=== PATIENT | female | born 1990 | race Caucasian/White ===

== ENCOUNTER 2016-11-21 09:13 | Emergency (ER) | payer OTHER ==
[~2016-11-21 09:13] MED LIST: IBUP600 PO; PERI8.6T PO; PRENCAP6 PO
[2016-11-21] MEDS ORDERED: ONDANSETRON HCL 4 MG/2 ML VIAL ONE ×2 (09:59→10:00)
[2016-11-21] MEDS ORDERED: DEXTROSE 5%-LACTATED RING INJ 1,000 ML IV SCH (10:00)
[2016-11-21] MEDS ORDERED: ONDANSETRON INJ 8 MG in DEXTROSE 5% IN WATER INJ 50 ML IV ONE ×2 (10:15)
[2016-11-21 10:39] LABS: AUTOMATED NEUTROPHIL # 5.5 TH/MM3 (1.8-7.7); BASOPHIL % 0.2 % (0.0-2.0); EOSINOPHIL % 0.3 % (0.0-4.0); HEMATOCRIT 36.2 % (35.0-46.0); HEMO FLAGS DIFF FINAL; LYMPH % 13.2 % (9.0-44.0); LYMPHOCYTE # 0.9 TH/MM3 (1.0-4.8); MEAN CELL VOLUME 86.3 FL (80.0-100.0); MEAN CORPUSCULAR HEMOGLOBIN 29.1 PG (27.0-34.0); MEAN CORPUSCULAR HGB CONC 33.8 % (32.0-36.0); MONO % 5.8 % (0.0-8.0); NEUT % 80.5 % (16.0-70.0); PLATELET COUNT 214 TH/MM3 (150-450); RED BLOOD COUNT 4.19 MIL/MM3 (4.00-5.30); RED CELL DISTRIBUTION WIDTH 14.2 % (11.6-17.2); WHITE BLOOD COUNT 6.9 TH/MM3 (4.0-11.0)
--- NOTE | 2016-11-21 10:43 | PD ---
HPI Chief Complaint Nausea vomiting and diarrhea Date Seen: Nov 21, 2016 Time Seen: 10:41 Travel History International Travel<30 Days: No Contact w/Intl Traveler<30Days: No Known Affected Area: No History of Present Illness HPI 26-year-old who is at 28 weeks and 4 days comes in complaining of nausea vomiting and diarrhea for the past 2 days. She's been unable to tolerate anything orally and kept it down for the past 24 hours. She's been having some mild cramping when she has bouts of diarrhea but otherwise minimal abdominal pain. Patient denies dysuria, fever, headache. Patient denies any complications. Weeks Gestation: 28 Para: 1 : 3 Miscarriage: 1 History Past Medical History Medical History: Denies Significant Hx Obstetric History Obstetric History Spontaneous vaginal delivery Past Surgical History Narrative Surgical Ankle surgery, knee surgery Family History Family History: Negative Social History Alcohol Use: No Tobacco Use: No Substance Abuse: No Allergies-Medications (Allergen,Severity, Reaction): Coded Allergies: No Known Allergies (Unverified , 01/22/15) Home Meds Active Scripts Promethazine (Phenergan) 25 Mg Tablet, 25 MG PO Q6H Y for NAUSEA OR VOMITING, # 20 TAB 0 Refills Prov:Kristen Payne MD 11/21/16 Sennosides-Docusate Sodium (Tiff-Colace 8.6-50 mg) 1 Tab Tab, 2 TAB PO Q12H Y for CONSTIPATION, #30 TAB Prov:Kitty Lynch MD 01/22/15 Ibuprofen (Motrin 600 Mg Tab) 600 Mg Tab, 600 MG PO Q6H Y for CRAMPING, #30 TAB Prov:Kitty Lynch MD 01/22/15 Reported Medications Mv & Min W/Fe Fumarat ( 1) Cap, 1 CAP PO DAILY, CAP 01/21/15 Review of Systems Except as stated in HPI: all other systems reviewed are Neg General / Constitutional: Chills Gastrointestinal: Nausea, Vomiting, Diarrhea Physical Exam Narrative GENERAL: Well-nourished, well-developed patient. SKIN: Warm and dry. HEAD: Normocephalic and atraumatic. ENT: No nasal drainage noted. Mucous membranes pink. Airway patent. NECK: Supple, trachea midline. No JVD. CARDIOVASCULAR: Regular rate and rhythm without murmurs, gallops, or rubs. RESPIRATORY: Breath sounds equal bilaterally. No accessory muscle use. ABDOMEN/GI: Abdomen soft, non-tender, bowel sounds present, no rebound, no guarding Gravid to [28-] weeks size Fundal Height: [-] GENITOURINARY: Deferred External Genitalia: intact and normal in appearance BUS glands: [-] Cervix: [-] Dilatation: [-] Effacement: [-] Station: [-] Presentation: [-] Membranes: [intact or ruptured] Uterine Contractions: [-] FHT's: Category: [-1] Baseline: [140-] Reactive: [Moderate-] Variability: [Moderate-] Decels: [Absent-] EXTREMITIES: No cyanosis or edema. BACK: Nontender without obvious deformity. No CVA tenderness. NEUROLOGICAL: Awake and alert. Motor and sensory grossly within normal limits. Five out of 5 muscle strength in all muscle groups. Normal speech. Recheck exam Vitals are normal, patient has received approximately 1600 IV fluids, able to tolerate by mouth after receiving Phenergan and Zofran Will discharge home on antiemetics Data Data Vital Signs Reviewed: Yes Orders Orders Complete Blood Count With Diff (11/21/16 09:45) Comprehensive Metabolic Panel (11/21/16 09:45) Magnesium (Mg) (11/21/16 09:45) Amylase (11/21/16 09:45) Lipase (11/21/16 09:45) Urinalysis - C+S If Indicated (11/21/16 09:45) Dextrose 5%-Lactated Ring Inj (D5-Lr Inj (11/21/16 10:00) Lactated Ringer's 1000 Ml Inj (Lr 1000 M (11/21/16 11:01) Ondansetron Inj (Zofran Inj) (11/21/16 10:15) Ondansetron Inj (Zofran Inj) (11/21/16 09:59) Ondansetron Inj (Zofran Inj) (11/21/16 10:00) Labs Laboratory Tests Test 11/21/16 09:53 White Blood Count 6.9 TH/MM3 Red Blood Count 4.19 MIL/MM3 Hemoglobin 12.2 GM/DL Hematocrit 36.2 % Mean Corpuscular Volume 86.3 FL Mean Corpuscular Hemoglobin 29.1 PG Mean Corpuscular Hemoglobin Concent 33.8 % Red Cell Distribution Width 14.2 % Platelet Count 214 TH/MM3 Mean Platelet Volume 9.5 FL Neutrophils (%) (Auto) 80.5 % Lymphocytes (%) (Auto) 13.2 % Monocytes (%) (Auto) 5.8 % Eosinophils (%) (Auto) 0.3 % Basophils (%) (Auto) 0.2 % Neutrophils # (Auto) 5.5 TH/MM3 Lymphocytes # (Auto) 0.9 TH/MM3 Monocytes # (Auto) 0.4 TH/MM3 Eosinophils # (Auto) 0.0 TH/MM3 Basophils # (Auto) 0.0 TH/MM3 CBC Comment DIFF FINAL Differential Comment Urine Color YELLOW Urine Turbidity HAZY Urine pH 7.0 Urine Specific [place] 1.023 Urine Protein 30 mg/dL Urine Glucose (UA) NEG mg/dL Urine Ketones 40 mg/dL Urine Occult Blood SMALL Urine Nitrite NEG Urine Bilirubin NEG Urine Urobilinogen LESS THAN 2.0 MG/DL Urine Leukocyte Esterase MOD Urine RBC 35 /hpf Urine WBC 11 /hpf Urine Squamous Epithelial Cells 26 /hpf Urine Bacteria FEW /hpf Urine Mucus FEW /lpf Microscopic Urinalysis Comment CULTURE INDICATED Blood Urea Nitrogen 5 MG/DL Creatinine 0.48 MG/DL Random Glucose 92 MG/DL Total Protein 6.8 GM/DL Albumin 2.7 GM/DL Calcium Level 8.6 MG/DL Magnesium Level 2.0 MG/DL Alkaline Phosphatase 98 U/L Aspartate Amino Transf (AST/SGOT) 10 U/L Alanine Aminotransferase (ALT/SGPT) 12 U/L Total Bilirubin 0.5 MG/DL Sodium Level 136 MEQ/L Potassium Level 3.6 MEQ/L Chloride Level 105 MEQ/L Carbon Dioxide Level 21.7 MEQ/L Anion Gap 9 MEQ/L Estimat Glomerular Filtration Rate 155 ML/MIN Amylase Level 34 U/L Lipase 62 U/L Laboratory Tests Test 11/21/16 09:53 White Blood Count 6.9 Red Blood Count 4.19 Hemoglobin 12.2 Hematocrit 36.2 Mean Corpuscular Volume 86.3 Mean Corpuscular Hemoglobin 29.1 Mean Corpuscular Hemoglobin Concent 33.8 Red Cell Distribution Width 14.2 Platelet Count 214 Mean Platelet Volume 9.5 Neutrophils (%) (Auto) 80.5 Lymphocytes (%) (Auto) 13.2 Monocytes (%) (Auto) 5.8 Eosinophils (%) (Auto) 0.3 Basophils (%) (Auto) 0.2 Neutrophils # (Auto) 5.5 Lymphocytes # (Auto) 0.9 Monocytes # (Auto) 0.4 Eosinophils # (Auto) 0.0 Basophils # (Auto) 0.0 CBC Comment DIFF FINAL Differential Comment MDM Medical Record Reviewed: Yes Plan 28-29 weeks with mild dehydration due to gastroenteritis s/p hydration Will add antiemetics to home meds, Phenergan Diagnosis Diagnosis: Primary Impression: 28 weeks gestation of Additional Impressions: Nausea & vomiting Diarrhea Dehydration Disposition: 01 DISCHARGE HOME Scripts Promethazine (Phenergan) 25 Mg Tablet 25 MG PO Q6H Y for NAUSEA OR VOMITING, #20 TAB 0 Refills Prov: Kristen Payne MD 11/21/16 Kristen Payne MD Nov 21, 2016 10:43
[2016-11-21 10:50] LABS: BACTERIA, URINE FEW /hpf; BLOOD, URINE SMALL (NEG); COMMENT (UR) CULTURE INDICATED; CULTURE IF INDICATED CULTURE INDICATED; GLUCOSE,URINE NEG (NEG); KETONE, URINE 40 mg/dL (NEG); MUCUS URINE FEW /lpf (OCC); NITRITE,URINE NEG (NEG); SQUAMOUS EPITHELIAL CELL URINE 26 /hpf (0-5); URINE COLOR YELLOW (YELLW/STRAW)
[2016-11-21 10:58] LABS: AMYLASE 34 U/L (25-115); ANION GAP 9 MEQ/L (5-15); AST (GOT) 10 U/L (15-37); BICARBONATE 21.7 MEQ/L (21.0-32.0); BLOOD UREA NITROGEN 5 MG/DL (7-18); CHLORIDE 105 MEQ/L (98-107); GLOMERULAR FILTRATION RATE 155 ML/MIN (>89); POTASSIUM 3.6 MEQ/L (3.5-5.1); SODIUM (NA) 136 MEQ/L (136-145)
[2016-11-21 10:59] LABS: ALT (GPT) 12 U/L (10-53)
[2016-11-21 11:01] LABS: ALKALINE PHOSPHATASE 98 U/L (45-117); TOTAL BILIRUBIN ADULT 0.5 MG/DL (0.2-1.0)
[2016-11-21] MEDS ORDERED: LACTATED RINGER'S 1000 ML INJ 1,000 ML IV SCH (11:01)
[2016-11-21] MEDS ORDERED: PROMETHAZINE INJ 25 MG/ML VIAL IM STA (11:09)
[2016-11-21] MEDS ORDERED: PROM25TA10 PO (11:24)
== END 2016-11-21 11:57 | disposition home or self-care (01) ==
LOC: HOBED 09:13
DX: O26.92 Pregnancy related conditions, unspecified, second trimester (principal); R11.2 Nausea with vomiting, unspecified; R19.7 Diarrhea, unspecified; E86.0 Dehydration; Z3A.28 28 weeks gestation of pregnancy
CPT/HCPCS: 80053; 81001; 82150; 83690; 83735; 85025; 87086; J2405; J2550; J7120; J7121; 96365; 96368; 96372; 96375

== ENCOUNTER 2017-01-07 11:44 | Emergency (ER) | payer OTHER ==
[~2017-01-07 11:44] MED LIST changes: +PROM25TA10 PO
[2017-01-07 12:25] LABS: HEMATOCRIT 36.3 % (35.0-46.0); MEAN CELL VOLUME 87.1 FL (80.0-100.0); MEAN CORPUSCULAR HEMOGLOBIN 29.9 PG (27.0-34.0); MEAN CORPUSCULAR HGB CONC 34.3 % (32.0-36.0); PLATELET COUNT 193 TH/MM3 (150-450); RED BLOOD COUNT 4.17 MIL/MM3 (4.00-5.30); RED CELL DISTRIBUTION WIDTH 15.2 % (11.6-17.2); REVIEW FLAG FINAL; WHITE BLOOD COUNT 7.6 TH/MM3 (4.0-11.0)
[2017-01-07 12:30] LABS: BACTERIA, URINE RARE /hpf; BLOOD, URINE NEG (NEG); CALCIUM OXALATE CRYSTALS,URINE OCC /hpf; COMMENT (UR) CULT NOT INDICATED; CULTURE IF INDICATED CULT NOT INDICATED; GLUCOSE,URINE NEG (NEG); KETONE, URINE NEG (NEG); MUCUS URINE FEW /lpf (OCC); NITRITE,URINE NEG (NEG); PH, URINE 6.5 (5.0-8.5); SQUAMOUS EPITHELIAL CELL URINE 5 /hpf (0-5); URINE COLOR YELLOW (YELLW/STRAW)
[2017-01-07 12:49] LABS: ANION GAP 8 MEQ/L (5-15); AST (GOT) 10 U/L (15-37); BICARBONATE 21.4 MEQ/L (21.0-32.0); BLOOD UREA NITROGEN 6 MG/DL (7-18); CHLORIDE 109 MEQ/L (98-107); GLOMERULAR FILTRATION RATE 125 ML/MIN (>89); POTASSIUM 3.9 MEQ/L (3.5-5.1); SODIUM (NA) 138 MEQ/L (136-145); URIC ACID 4.6 MG/DL (2.6-6.0)
[2017-01-07 12:50] LABS: ALT (GPT) 11 U/L (10-53)
[2017-01-07 12:52] LABS: ALKALINE PHOSPHATASE 107 U/L (45-117); TOTAL BILIRUBIN ADULT 0.3 MG/DL (0.2-1.0)
--- NOTE | 2017-01-07 13:22 | PD ---
HPI Chief Complaint Complained of headache and visual changes which was in the office today Date Seen: Jan 07, 2017 Time Seen: 13:15 Travel History International Travel<30 Days: No Contact w/Intl Traveler<30Days: No Known Affected Area: No History of Present Illness HPI 26-year-old white female at [address] Santiago for care. She was in the office today and had a bad headache and visual changes as well as sent her to OB ED to rule out preeclampsia with her blood pressures totally normal there and here, heart tones are reactive she is not apolol. She states she does not have a history of headaches particularly and did not take any medication Tylenol or anything for this. She also is complaining some numbness and tingling in her hands which is new as well Weeks Gestation: 35 Para: 1 : 3 History Obstetric History Obstetric History She delivered vaginally first time no problem She is had mild gestational diabetes with this Social History Alcohol Use: No Tobacco Use: No Substance Abuse: No Allergies-Medications (Allergen,Severity, Reaction): Coded Allergies: No Known Allergies (Unverified , 01/22/15) Home Meds Active Scripts Promethazine (Phenergan) 25 Mg Tablet, 25 MG PO Q6H Y for NAUSEA OR VOMITING, # 20 TAB 0 Refills Prov:Kristen Payne MD 11/21/16 Sennosides-Docusate Sodium (Tiff-Colace 8.6-50 mg) 1 Tab Tab, 2 TAB PO Q12H Y for CONSTIPATION, #30 TAB Prov:Kitty Lynch MD 01/22/15 Ibuprofen (Motrin 600 Mg Tab) 600 Mg Tab, 600 MG PO Q6H Y for CRAMPING, #30 TAB Prov:Kitty Lynch MD 01/22/15 Reported Medications Mv & Min W/Fe Fumarat ( 1) Cap, 1 CAP PO DAILY, CAP 01/21/15 Review of Systems General / Constitutional: No: Fever, Weight Gain, Chills, Other Eyes: Visual changes, No: Diploplia, Blurred Vision, Pain, Photophobia HENT: Headaches, No: Vertigo, Lightheadedness Cardiovascular: No: Irregular Rhythm, Chest Pain or Discomfort, Palpitations, Tachycardia, Syncope, Varicosities, Edema, Cyanosis Respiratory: No: Cough, Short of Breath, Other Gastrointestinal: No: Nausea, Vomiting, Diarrhea Genitourinary: No: Decreased Urinary Output, Oliguria Musculoskeletal: No: Limited ROM, Weakness, Cramping, Edema, Pain Skin: No Rash, No Itching, No Dryness, No Lumps, No Change in Pigmentation, No Change in Nails, No Alopecia, No Lesions Neurologic: No: Weakness, Dizziness, Syncope, Focal Abnormalities, Coordination Problem, Headache, Slurred Speech, Seizures Psychiatric: No: Depression, Suicidal Ideations, Homicidal Ideation Endocrine: No: Heat Intolerance, Cold Intolerance, Polydipsia, Polyuria, Other Physical Exam Narrative GENERAL: Well-nourished, well-developed patient. SKIN: Warm and dry. HEAD: Normocephalic and atraumatic. EYES: No scleral icterus. No injection or drainage. ENT: No nasal drainage noted. Mucous membranes pink. Airway patent. NECK: Supple, trachea midline. No JVD. CARDIOVASCULAR: Regular rate and rhythm without murmurs, gallops, or rubs. RESPIRATORY: Breath sounds equal bilaterally. No accessory muscle use. BREASTS: Bilateral exam showed no masses , no retractions, no nipple discharge. ABDOMEN/GI: Abdomen soft, non-tender, bowel sounds present, no rebound, no guarding Gravid to [35-] weeks size Fundal Height: [35-] GENITOURINARY: ] Uterine Contractions: [-none] FHT's: Category: [-1] Baseline: [133-] Reactive: [-yes] Variability: [-mod] Decels: [-0] EXTREMITIES: No cyanosis or edema. BACK: Nontender without obvious deformity. No CVA tenderness. NEUROLOGICAL: Awake and alert. Motor and sensory grossly within normal limits. Five out of 5 muscle strength in all muscle groups. Normal speech. Data Data Orders Orders Cbc No Diff, Includes Plts (01/07/17 12:11) Comprehensive Metabolic Panel (01/07/17 12:11) Uric Acid (01/07/17 12:11) Urinalysis - C+S If Indicated (01/07/17 12:11) Labs Laboratory Tests Test 01/07/17 12:00 01/07/17 12:09 Urine Color YELLOW Urine Turbidity HAZY Urine pH 6.5 Urine Specific [place] 1.024 Urine Protein TRACE Urine Glucose (UA) NEG Urine Ketones NEG Urine Occult Blood NEG Urine Nitrite NEG Urine Bilirubin NEG Urine Urobilinogen 2.0 Urine Leukocyte Esterase SMALL Urine RBC 3 Urine WBC 3 Urine Squamous Epithelial Cells 5 Urine Calcium Oxalate Crystals OCC Urine Bacteria RARE Urine Mucus FEW Microscopic Urinalysis Comment CULT NOT INDICATED White Blood Count 7.6 Red Blood Count 4.17 Hemoglobin 12.5 Hematocrit 36.3 Mean Corpuscular Volume 87.1 Mean Corpuscular Hemoglobin 29.9 Mean Corpuscular Hemoglobin Concent 34.3 Red Cell Distribution Width 15.2 Platelet Count 193 Mean Platelet Volume 9.6 Blood Urea Nitrogen 6 Creatinine 0.58 Random Glucose 84 Total Protein 6.8 Albumin 2.8 Calcium Level 8.5 Uric Acid 4.6 Alkaline Phosphatase 107 Aspartate Amino Transf (AST/SGOT) 10 Alanine Aminotransferase (ALT/SGPT) 11 Total Bilirubin 0.3 Sodium Level 138 Potassium Level 3.9 Chloride Level 109 Carbon Dioxide Level 21.4 Anion Gap 8 Estimat Glomerular Filtration Rate 125 MDM Interpretation(s) Patient is 26-year-old white female at [address] Santiago for care. She presents referred from the office to rule out PIH. Patient' s normotensive with no blood pressures. She did have a headache visual changes and numbness in her hands in the office and my center to OB ED. Her PIH labs within normal limits her urinalysis is trace protein she has no significant swelling issues. heart rate tracing is reactive she is not apollo Plan Plan to discharge patient home to the nondistended bedrest but just decreased activity. To take Tylenol 2 every 3-4 when necessary headache pain reflux water stay out of bright lights anything might trigger her headache exacerbation. And she is to follow-up with her OB provider Diagnosis Diagnosis: Primary Impression: Headache Additional Impression: Visual changes Disposition: 01 DISCHARGE HOME Condition: Stable Alhaji Hallman II, MD Jan 07, 2017 13:22
== END 2017-01-07 13:48 | disposition home or self-care (01) ==
LOC: HOBED 11:44
DX: R51 Headache (principal); R20.0 Anesthesia of skin; R20.2 Paresthesia of skin; Z79.899 Other long term (current) drug therapy
CPT/HCPCS: 36415; 59025; 80053; 81001; 84550; 85027

== ENCOUNTER 2017-02-04 08:03 | Inpatient (IN) | payer OTHER ==
[~2017-02-04] VITALS: Ht 170.2 cm; Wt 111.0 kg
[2017-02-04] VITALS (41 sets, daily range): BP systolic 92–133; BP diastolic 55–91; PULSE 66–98; RESP 18; TEMP 97.6–98
[2017-02-04] MEDS ORDERED: OXYTOCIN 30 UNITS-500ML PREMIX 500 ML ONE (08:59)
[2017-02-04] MEDS ORDERED: LACTATED RINGER'S 1000 ML INJ 1,000 ML IV SCH (09:46)
[2017-02-04] MEDS ORDERED: LACTATED RINGER'S 1000 ML INJ 1,000 ML IV PRN (09:46)
[2017-02-04 09:55] LABS: AUTOMATED NEUTROPHIL # 5.1 TH/MM3 (1.8-7.7); BASOPHIL % 0.1 % (0.0-2.0); EOSINOPHIL % 0.5 % (0.0-4.0); HEMATOCRIT 38.1 % (35.0-46.0); HEMOGLOBIN 12.8 GM/DL (11.6-15.3); LYMPH % 23.1 % (9.0-44.0); LYMPHOCYTE # 1.7 TH/MM3 (1.0-4.8); MEAN CORPUSCULAR HEMOGLOBIN 29.2 PG (27.0-34.0); MEAN CORPUSCULAR HGB CONC 33.6 % (32.0-36.0); MEAN PLATELET VOLUME 10.2 FL (7.0-11.0); MONO % 6.4 % (0.0-8.0); MONOCYTE # 0.5 TH/MM3 (0-0.9); NEUT % 69.9 % (16.0-70.0); PLATELET COUNT 182 TH/MM3 (150-450); RED BLOOD COUNT 4.37 MIL/MM3 (4.00-5.30); RED CELL DISTRIBUTION WIDTH 14.7 % (11.6-17.2); WHITE BLOOD COUNT 7.3 TH/MM3 (4.0-11.0)
--- NOTE | 2017-02-04 09:59 | HHI.HP ---
HPI Date Seen: Feb 04, 2017 Time Seen: 09:45 Travel History International Travel<30 Days: No Contact w/Intl Traveler<30Days: No Known Affected Area: No History of Present Illness HPI 39 2/7 weeks, ; IOL, GDM ,on metformin with good gylcemic control Weeks Gestation: 39 Para: 1 : 3 Last Menstrual Period: Feb 04, 2017 Miscarriage: 1 : 0 History Past Medical History Narrative Medical History of GDM ,on metformin Medical History: Denies Significant Hx Past Surgical History Narrative Surgical S/P right knee arthroscopy Family History Family History: Negative Social History Alcohol Use: No Tobacco Use: No Substance Abuse: No Allergies-Medications (Allergen,Severity, Reaction): Coded Allergies: No Known Allergies (Unverified Adverse Reaction, Unknown, 02/04/17) Home Meds Active Scripts Promethazine (Phenergan) 25 Mg Tablet, 25 MG PO Q6H Y for NAUSEA OR VOMITING, # 20 TAB 0 Refills Prov:Kristen Payne MD 11/21/16 Sennosides-Docusate Sodium (Tiff-Colace 8.6-50 mg) 1 Tab Tab, 2 TAB PO Q12H Y for CONSTIPATION, #30 TAB Prov:Kitty Lynch MD 01/22/15 Ibuprofen (Motrin 600 Mg Tab) 600 Mg Tab, 600 MG PO Q6H Y for CRAMPING, #30 TAB Prov:Kitty Lynch MD 01/22/15 Reported Medications Mv & Min W/Fe Fumarat ( 1) Cap, 1 CAP PO DAILY, CAP 01/21/15 Review of Systems Gastrointestinal: Nausea, Vomiting Physical Exam Narrative GENERAL: Well-nourished, well-developed patient. SKIN: Warm and dry. HEAD: Normocephalic and atraumatic. EYES: No scleral icterus. No injection or drainage. ENT: No nasal drainage noted. Mucous membranes pink. Airway patent. NECK: Supple, trachea midline. No JVD. CARDIOVASCULAR: Regular rate and rhythm without murmurs, gallops, or rubs. RESPIRATORY: Breath sounds equal bilaterally. No accessory muscle use. BREASTS: Bilateral exam showed no masses , no retractions, no nipple discharge. ABDOMEN/GI: Abdomen soft, non-tender, bowel sounds present, no rebound, no guarding Gravid to 41 weeks size GENITOURINARY: External Genitalia: intact and normal in appearance Cervix: mid position Dilatation: 4+ Effacement:60 Station: -2 Presentation: vtx Membranes: AROM Uterine Contractions:none FHT's: Category: 1 EXTREMITIES: No cyanosis or edema. BACK: Nontender without obvious deformity. No CVA tenderness. NEUROLOGICAL: Awake and alert. Motor and sensory grossly within normal limits. Five out of 5 muscle strength in all muscle groups. Normal speech. Caprini VTE Risk Assessment Caprini VTE Risk Assessment: Mod/High Risk (score >= 2) Caprini Risk Assessment Model Point Value = 1 Point Value = 2 Point Value = 3 Point Value = 5 Age 41-60 Minor surgery BMI > 25 kg/m2 Swollen legs Varicose veins or History of unexplained or recurrent spontaneous Oral contraceptives or hormone replacement Sepsis (< 1 month) Serious lung disease, including pneumonia (< 1 month) Abnormal pulmonary function Acute myocardial infarction Congestive heart failure (< 1 month) History of inflammatory bowel disease Medical patient at bed rest Age 61-74 Arthroscopic surgery Major open surgery (> 45 min) Laparoscopic surgery (> 45 min) Malignancy Confined to bed (> 72 hours) Immobilizing plaster cast Central venous access Age >= 75 History of VTE Family history of VTE Factor V Leiden Prothrombin [id number] Lupus anticoagulant Anticardiolipin antibodies Elevated serum homocysteine Heparin-induced thrombocytopenia Other congenital or acquired thrombophilia Stroke (< 1 month) Elective arthroplasty Hip, pelvis, or leg fracture Acute spinal cord injury (< 1 month) Prophylaxis Regimen Total Risk Factor Score Risk Level Prophylaxis Regimen 0-1 Low Early ambulation 2 Moderate Order ONE of the following: *Sequential Compression Device (SCD) *Heparin 5000 units SQ BID 3-4 Higher Order ONE of the following medications: *Heparin 5000 units SQ TID *Enoxaparin/Lovenox 40 mg SQ daily (WT < 150 kg, CrCl > 30 mL/min) *Enoxaparin/Lovenox 30 mg SQ daily (WT < 150 kg, CrCl > 10-29 mL/min) *Enoxaparin/Lovenox 30 mg SQ BID (WT < 150 kg, CrCl > 30 mL/min) AND/OR *Sequential Compression Device (SCD) 5 or more Highest Order ONE of the following medications: *Heparin 5000 units SQ TID (Preferred with Epidurals) *Enoxaparin/Lovenox 40 mg SQ daily (WT < 150 kg, CrCl > 30 mL/min) *Enoxaparin/Lovenox 30 mg SQ daily (WT < 150 kg, CrCl > 10-29 mL/min) *Enoxaparin/Lovenox 30 mg SQ BID (WT < 150 kg, CrCl > 30 mL/min) AND *Sequential Compression Device (SCD) Data Data Vital Signs Reviewed: Yes Orders Orders Oxytocin 30 Units-500ml Premix (Pitocin (02/04/17 08:59) ^ Non Stress Test (02/04/17 09:46) Response To Medication .Post New Med Administration, Reaction (02/04/17 09:46) ^ Discontinue Medication (02/04/17 09:46) Oxytocin Drip (2-2-30) (02/04/17 10:00) Admit To Inpatient (02/04/17 ) Vital Signs (Adult) .Per protocol (02/04/17 09:46) Heart (02/04/17 09:46) Amnioinfusion (02/04/17 09:46) Urinary Catheter Management .ONCE (02/04/17 09:46) Diet Npo (02/04/17 Breakfast) Lactated Ringer's 1000 Ml Inj (Lr 1000 M (02/04/17 09:46) Lactated Ringer's 1000 Ml Inj (Lr 1000 M (02/04/17 09:46) Sodium Chlorid 0.9% 500 Ml Inj (Ns 500 M (02/04/17 10:00) Sodium Chlor 0.9% 1000 Ml Inj (Ns 1000 M (02/04/17 10:06) Lidocaine 1% Inj (50 Ml) (Xylocaine 1% I (02/04/17 10:00) Citric Acid-Sodium Citrate Liq (Bicitra (02/04/17 10:00) Fentanyl Inj (Fentanyl Inj) (02/04/17 10:00) Fentanyl Inj (Fentanyl Inj) (02/04/17 10:00) Complete Blood Count With Diff (02/04/17 09:46) Hold Clot (02/04/17 09:46) Abo/Rh Blood Type (02/04/17 09:46) Urinalysis - C+S If Indicated (02/04/17 09:46) Drug Screen, Random Urine (02/04/17 09:46) Resp Oxygen Non Rebreathe Mask (02/04/17 ) ^ Epidural / Intrathecal Infus (02/04/17 09:46) Oxytocin 30 Units-500ml Premix (Pitocin (02/04/17 10:00) Lidocaine 1% Inj (50 Ml) (Xylocaine 1% I (02/04/17 10:00) Light Mineral Oil (Muri-Lube Oil) (02/04/17 10:00) Inpatient Certification (02/04/17 ) Specimen To Be Collected PRN (02/04/17 09:46) Specimen To Be Collected PRN (02/04/17 09:46) Group B Strep: Negative Assessment/Plan Assessment and Plan 39 2/7 weeks, GDM, normal BS; GBS neg., IOL EFW 8 + lbs., anticipate Jessee San MD Feb 04, 2017 09:59
[2017-02-04] MEDS ORDERED: LIDOCAINE HCL 1% 50 ML VIAL INFIL PRN (10:00)
[2017-02-04] MEDS ORDERED: SODIUM CHLORID 0.9% 500 ML INJ 500 ML IV PRN (10:00)
[2017-02-04] MEDS ORDERED: LIDOCAINE HCL 1% 50 ML VIAL I-DERMAL PRN (10:00)
[2017-02-04] MEDS ORDERED: MINERAL OIL 10 ML VIAL TOPICAL PRN (10:00)
[2017-02-04] MEDS ORDERED: OXYTOCIN 30 UNITS-500ML PREMIX 500 ML IV ONE (10:00)
[2017-02-04] MEDS ORDERED: OXYTOCIN 30 UNITS-500ML PREMIX 500 ML IV SCH ×2 (10:00→13:00)
[2017-02-04] MEDS ORDERED: CITRIC ACID-SODIUM CITRATE LIQ 30 ML UDC PO SCH (10:00)
[2017-02-04] MEDS ORDERED: SODIUM CHLOR 0.9% 1000 ML INJ 1,000 ML IV PRN (10:06)
[2017-02-04 10:07] LABS: BACTERIA, URINE FEW /hpf; BILIRUBIN, URINE NEG (NEG); BLOOD, URINE NEG (NEG); GLUCOSE,URINE NEG (NEG); HYALINE CAST, URINE 1 /lpf (RARE); KETONE, URINE NEG (NEG); MUCUS URINE FEW /lpf (OCC); NITRITE,URINE NEG (NEG); SQUAMOUS EPITHELIAL CELL URINE 22 /hpf (0-5); URINE COLOR YELLOW (YELLW/STRAW); URINE LEUKOCYTE ESTERASE LARGE (NEG)
[2017-02-04] MEDS ORDERED: fentaNYL 2MCG-BUPIV 0.125% INJ 100 ML ONE (10:23)
[2017-02-04] MEDS ORDERED: ePHEDrine/NS 25 MG/5 ML SYRINGE ONE (11:04)
[2017-02-04] MEDS ORDERED: NO SYSTEM NARCOTICS PRN (11:30)
[2017-02-04] MEDS ORDERED: ePHEDrine/NS 25 MG/5 ML SYRINGE IV PUSH PRN (11:30)
[2017-02-04] MEDS ORDERED: DO NOT ADMINISTER ANTICOAGULANTS PRN (11:30)
[2017-02-04] MEDS ORDERED: fentaNYL 2MCG-BUPIV 0.125% 100 ML EPIDURAL SCH (11:30)
--- NOTE | 2017-02-04 12:35 | PD.OB.DELI ---
Weeks gestation: 39 Gest age assessed date: Feb 04, 2017 Gest age assessed time: 09:45 Pt started active labor?: No Medical induction of labor?: Yes Artificial rupture of membrane: Yes Anesthesia: Epidural Episiotomy: None Vaginal Delivery: Normal Presentation: Occiput anterior Nuchal Cord: None Delayed cord clamping (45 sec): Yes : Female Delivery date: Feb 04, 2017 Delivery time: 12:19 One Minute : 9 Five Minute : 9 Weight: 7/1 Placenta: Spontaneous delivery Laceration: Vaginal laceration, 1 deg Repair: Vicryl interrupted Estimated blood loss: 250 Jessee Santiago MD Feb 04, 2017 12:35
[2017-02-04] MEDS ORDERED: ALUMINUM/MAGNESIUM/SIMETH 30 ML CUP PO PRN (13:00)
[2017-02-04] MEDS ORDERED: ONDANSETRON ODT 4 MG TAB PO PRN (13:00)
[2017-02-04] MEDS ORDERED: SODIUM CHLORIDE 0.9% FLUSH 10 ML FLUSH IV FLUSH PRN (13:00)
[2017-02-04] MEDS ORDERED: OXYTOCIN 10 UNIT/ML AMP XX PRN (13:00)
[2017-02-04] MEDS ORDERED: BENZOCAINE 20% TOPICAL SPRAY 60 ML CAN TOPICAL PRN (13:00)
[2017-02-04] MEDS ORDERED: WITCH HAZEL 50%/GLYCERIN 12.5% 40 PAD JAR TOPICAL PRN (13:00)
[2017-02-04] MEDS ORDERED: DOCUSATE SODIUM 50 MG/SENNA 8.6 MG TAB PO PRN (13:00)
[2017-02-04] MEDS ORDERED: SODIUM CHLORIDE 0.9% FLUSH 10 ML FLUSH IV FLUSH SCH (13:00)
[2017-02-04] MEDS ORDERED: DIPHTH/TETANUS/ACEL PERTUSSIS (BOOSTER) 0.5 ML VIAL/PFS IM ONE (16:00)
[2017-02-04] MEDS ORDERED: MEASLES, MUMPS, RUBELLA VACCINE 0.5 ML VIAL SQ ONE (16:00)
[2017-02-04] MEDS: IBUPROFEN 800 MG TAB PO PRN (16:12)
[2017-02-04] MEDS: ACETAMINOPHEN 325 MG TAB PO PRN ×2 (16:12→22:36)
--- NOTE | 2017-02-04 19:51 | HHI.DCPOC ---
Discharge Care Plan Diagnosis: (1) (spontaneous vaginal delivery) (2) Gestational diabetes mellitus (GDM) Your Health Problems Are: Vaginal delivery Report Symptoms to Your Doctor -Temperature above 100.5 degrees -Redness, of incision or excessive or foul smelling drainage -Unusual pain or calf pain -Increased vaginal bleeding -Painful or difficulty urinating -Feelings of extreme sadness or anxiety after 2 weeks Goals to Promote Your Health * To prevent worsening of your condition and complications * To maintain your health at the optimal level Directions to Meet Your Goals Take your medications as prescribed Follow your dietary instruction Follow activity as directed Ensure plenty of rest for recovery Drink fluids for hydration Keep your appointments as scheduled Take your immunizations and boosters as scheduled If your symptoms worsen call your PCP, if no PCP go to Urgent Care Center or Emergency Room Smoking is Dangerous to Your Health. Avoid second hand smoke Call the 24-hour crisis hotline for domestic abuse at Lars Cabrera MD Feb 04, 2017 19:51
[2017-02-04] MEDS ORDERED: ZOLPIDEM TARTRATE 5 MG TAB PO PRN (21:00)
[2017-02-05] MEDS: ACETAMINOPHEN 325 MG TAB PO PRN ×3 (03:42→12:48)
[2017-02-05] MEDS: IBUPROFEN 800 MG TAB PO PRN ×2 (03:42→12:48)
--- NOTE | 2017-02-05 07:45 | HHI.OB ---
Subjective Post Day: 1 Remarks doing well, meeting milestones, desires d/c home today Objective Vitals/I&O Vital Signs Date Time Temp Pulse Resp B/P (MAP) Pulse Ox O2 Delivery O2 Flow Rate FiO2 02/04/17 20:00 97.9 66 18 110/66 (81) 02/04/17 14:35 72 18 112/68 (83) 02/04/17 14:35 98.0 02/04/17 14:18 18 02/04/17 13:46 74 110/65 (80) 02/04/17 13:31 119/63 (81) 02/04/17 13:16 68 111/64 (80) 02/04/17 13:06 68 109/63 (78) 02/04/17 12:50 97.6 18 02/04/17 12:46 82 110/66 (81) 02/04/17 12:36 80 102/67 (79) 02/04/17 12:35 18 02/04/17 12:31 97 02/04/17 12:05 91 02/04/17 12:01 82 92/62 (72) 02/04/17 12:00 75 02/04/17 11:50 76 02/04/17 11:46 70 102/55 (71) 02/04/17 11:45 69 02/04/17 11:43 97.7 02/04/17 11:38 70 104/63 (77) 02/04/17 11:35 80 02/04/17 11:31 92 02/04/17 11:30 88 02/04/17 11:20 98 02/04/17 11:16 78 101/61 (74) 02/04/17 11:15 80 02/04/17 11:11 74 105/64 (78) 02/04/17 11:10 86 02/04/17 11:05 88 108/67 (81) 02/04/17 11:05 69 02/04/17 11:03 98 95/68 (77) 02/04/17 11:00 18 02/04/17 11:00 87 02/04/17 11:00 77 104/73 (83) 02/04/17 10:56 75 110/60 (77) 02/04/17 10:55 82 02/04/17 10:51 81 122/72 (89) 02/04/17 10:50 73 02/04/17 10:46 68 129/82 (98) 02/04/17 10:45 78 02/04/17 10:41 72 126/91 (103) 02/04/17 10:40 75 02/04/17 10:35 80 133/91 (105) 02/04/17 10:35 81 02/04/17 10:31 69 114/85 (95) 02/04/17 10:23 18 02/04/17 10:01 73 116/71 (86) Objective Remarks GENERAL: Well-nourished, well-developed patient. CARDIOVASCULAR: Regular rate and rhythm without murmurs, gallops, or rubs. RESPIRATORY: Breath sounds equal bilaterally. No accessory muscle use. ABDOMEN/GI: Abdomen soft, non-tender. Fundus: Firm, non-tender at umbilicus. GENITOURINARY: Light to moderate bleeding. EXTREMITIES: No cyanosis or edema, non-tender, without signs of DVT. Medications and IVs Current Medications Medications (Trade) Dose Ordered Sig/Danielle Route Start Time Stop Time Status Last Admin Oxytocin 500 ml @ 0 mls/hr TITRATE IV 02/04/17 10:00 02/04/17 10:08 Lactated Ringer's 1,000 ml @ 125 mls/hr Q8H IV 02/04/17 09:46 02/04/17 10:07 Lactated Ringer's 1,000 ml @ 3,000 mls/hr Q20M PRN IV 02/04/17 09:46 02/04/17 10:35 Sodium Chloride 500 ml @ 1,000 mls/hr ONCE PRN IV 02/04/17 10:00 02/05/17 09:59 Sodium Chloride 1,000 ml @ 100 mls/hr Q10H PRN IV 02/04/17 10:06 (Xylocaine 1% Inj (50 ml)) 0.1 ml UNSCH X1 PRN I-DERMAL 02/04/17 10:00 02/07/17 09:59 (Bicitra Liq) 30 ml ENERGY SYSTEMS ENGINEER PO 02/04/17 10:00 02/08/17 09:59 (fentaNYL INJ) 50 mcg Q1H PRN IV PUSH 02/04/17 10:00 (fentaNYL INJ) 100 mcg Q1H PRN IV PUSH 02/04/17 10:00 (Xylocaine 1% Inj (50 ml)) 10 ml UNSCH X1 PRN INFIL 02/04/17 10:00 02/06/17 09:59 (Muri-Lube Oil) 10 ml UNSCH PRN TOPICAL 02/04/17 10:00 Miscellaneous Information No systemic narcotics to be given except... UNSCH PRN .XX 02/04/17 11:30 02/05/17 11:29 Miscellaneous Information DO NOT ADMINISTER ANY ANTICOAGUL... UNSCH PRN .XX 02/04/17 11:30 02/05/17 11:29 Fentanyl/ Bupivacaine HCl 100 ml @ 0 mls/hr TITRATE EPIDURAL 02/04/17 11:30 02/04/17 14:18 (ePHEDrine/NS 25 MG/5 ML SYR) 10 mg UNSCH PRN IV PUSH 02/04/17 11:30 02/05/17 11:29 (Pitocin Inj) 20 units UNSCH X1 PRN XX 02/04/17 13:00 02/05/17 12:59 (NS Flush) 2 ml BID IV FLUSH 02/04/17 13:00 (NS Flush) 2 ml UNSCH PRN IV FLUSH 02/04/17 13:00 (Tylenol) 650 mg Q4H PRN PO 02/04/17 13:00 02/05/17 03:42 (Motrin) 800 mg Q8H PRN PO 02/04/17 13:00 02/05/17 03:42 (Americaine 20% Top Spr) 1 spray Q4H PRN TOPICAL 02/04/17 13:00 02/04/17 16:12 (Tucks Pads) 1 applic QID PRN TOPICAL 02/04/17 13:00 02/04/17 16:12 (Tiff-Colace) 2 tab Q12H PRN PO 02/04/17 13:00 (Ambien) 5 mg HS PRN PO 02/04/17 21:00 (Mag-Al Plus Susp Liq) 15 ml Q8H PRN PO 02/04/17 13:00 (Zofran Odt) 4 mg Q6H PRN PO 02/04/17 13:00 Assessment/Plan Assessment and Plan 26 yo s/p 1. PPD #1: doing well, d/c home later today. 2. GDMA1: 2hr GTT at 6wk FU. Lars Cabrera MD Feb 05, 2017 07:45
[2017-02-05 08:00] VITALS: BP 110/66; PULSE 78; RESP 16; TEMP 97.9; O2SAT 97
[2017-02-09] MEDS ORDERED: CEPH-460 PO (20:11)
== END 2017-02-05 17:03 | disposition home or self-care (01) | DRG 775 ==
LOC: H2EB 08:03 → H1EA 14:07
PROVIDERS: ADMIT Obstetrics & Gynecology; ATTEND Obstetrics & Gynecology
PROC: 10E0XZZ Delivery of Products of Conception, External Approach (ICD-10-PCS; principal; 2017-02-04)
PROC: 0HQ9XZZ Repair Perineum Skin, External Approach (ICD-10-PCS; 2017-02-04)
PROC: 10907ZC Drainage of Amniotic Fluid, Therapeutic from Products of Conception, Via Natural or Artificial Opening (ICD-10-PCS; 2017-02-04)
PROC: 3E033VJ Introduction of Other Hormone into Peripheral Vein, Percutaneous Approach (ICD-10-PCS; 2017-02-04)
PROC: 3E0R3BZ Introduction of Anesthetic Agent into Spinal Canal, Percutaneous Approach (ICD-10-PCS; 2017-02-04)
PROC: 00HU33Z Insertion of Infusion Device into Spinal Canal, Percutaneous Approach (ICD-10-PCS; 2017-02-04)
DX: O24.425 Gestational diabetes mellitus in childbirth, controlled by oral hypoglycemic drugs (principal); O70.0 First degree perineal laceration during delivery; Z37.0 Single live birth; Z3A.39 39 weeks gestation of pregnancy
CPT/HCPCS: 59025; 80307; 81001; 85025; 86900; 86901; J2590; J7120